=== PATIENT | male | born 1985 | race Caucasian/White ===

== ENCOUNTER 2017-12-20 17:09 | Emergency (ER) | payer MEDICAID, SELFPAY ==
[2017-12-20 17:10] VITALS: BP 137/84; PULSE 87; RESP 18; TEMP 36.2; O2SAT 99; BMI 229.2
--- NOTE | 2017-12-20 18:05 | EKG12_ITS ---
Test Reason : CHEST PAIN Blood Pressure : / mmHG Vent. Rate : 081 BPM Atrial Rate : 081 BPM P-R Int : 140 ms QRS Dur : 104 ms QT Int : 362 ms P-R-T Axes : 062 027 041 degrees QTc Int : 420 ms Normal sinus rhythm Normal ECG Confirmed by RODRIGO LOMELI, ALBINO ([id number]), proposal editor SKYLER MCGHEE ([id number]) on 12/23/2017 1:14:47 PM Referred By: LAURENCE/TI Confirmed By:ALBINO WALLACE MD
[2017-12-20] MEDS: 0.9% Normal Saline 1,000 ML 1000 ML IV (19:09)
[2017-12-20] MEDS: Ketorolac 30 MG/ML Syringe IV (19:09)
[2017-12-20] MEDS: Ondansetron 4 MG/2 ML Vial IV (19:09)
[2017-12-20 19:10] VITALS: BP 119/83; PULSE 101; RESP 17; O2SAT 100
[2017-12-20 19:24] LABS: Absolute Lymphocyte Count 1.38 X10^3/ul (0.83-4.51); Basophil# 0.01 X10^3/uL; Basophil% 0.1 % (0-1); Eosinophil# 0.09 X10^3/uL; Eosinophils% 0.7 % (0-5); Hemoglobin 14.8 g/dl (13.0-16.5); Lymphocyte # 1.38 X10^3/ul (4.0); Lymphocyte % 10.4 % (19-41); Mean Corp Hgb Conc 34.4 g/gl (32-36); Mean Corpuscular Hgb 30.3 pg (27.0-32.0); Mean Corpuscular Volume 88.1 fL (80-94); Mean Platelet Vol. 11.8 fl (6.2-12.0); Monocyte# 0.86 X10^3/uL; Monocyte% 6.5 % (0-10); Neutrophil # 10.95 X10^3/uL (2.7-7.7); Neutrophil % 82.1 % (47-70); Platelet Count 262 K/mm3 (150-450); RBC Distribution Width CV 13.1 % (11.6-14.6); RBC Distribution Width SD 42.3 fl (35.1-43.9); Red Blood Count 4.88 M/mm3 (4.6-6.2); White Blood Count 13.3 K/mm3 (4.4-11.0)
[2017-12-20 19:25] LABS: POSITIVE COUNT NO; POSITIVE DIFFERENTIAL NO; POSITIVE MORPHOLOGY NO
[2017-12-20 19:30] LABS: ALB/GLOB Ratio 1.5 RATIO (0.9-2.4); AST(SGOT) 138 U/L (15-37); Alanine Aminotransfer ALT/SGPT 68 U/L (16-61); Albumin, Serum 4.5 g/dL (3.2-5.0); Alkaline Phosphatase 91 U/L (45-117); Anion Gap 10 (5-15); BUN 12 mg/dL (7-18); BUN/Creat Ratio 16.1 RATIO (10-20); Calcium,Total 8.7 mg/dL (8.5-10.1); Chloride 110 mmol/L (98-107); Creatinine, Serum 0.74 mg/dL (0.70-1.30); EST Glomerular Filtration Rate 131 mL/min (>60); Est Glom Filt Rate - Afr Amer 158 mL/min (>60); Estimated Creatinine Clearance 160.21 ml/min; Glucose 96 mg/dL (74-106); Lipase 263 U/L (73-393); Potassium 3.9 mmol/L (3.5-5.1); Protein, Total 7.5 g/dL (6.4-8.2); Sodium Level 144 mmol/L (136-145)
--- NOTE | 2017-12-20 19:33 | US_ITS ---
STUDY: ABDOMINAL ULTRASOUND - RIGHT UPPER QUADRANT REASON FOR VISIT: Male, 32 years old. Epigastric pain TECHNIQUE: Ultrasound evaluation of the right upper quadrant was performed with real-time and static rodriguez-scale imaging. TECHNICAL QUALITY: Adequate. COMPARISON: None. FINDINGS: Liver: The liver measures 17.1 cm. There is normal echogenicity of the liver. The bile ducts are within normal limits. There is hepatic color flow. The direction of portal flow is hepatopetal. There is no demonstrated mass lesion. Gallbladder: Normal distended gallbladder. The gallbladder wall measures 2 mm. There is a negative sonographic Lawson's sign. There is no pericholecystic fluid. There is either an adherent non mobile gallstone of the gallbladder vs a gallbladder polyp. This measures around 7 to 6mm. Common Bile Duct (C.B.D.): The common bile duct measures 6 mm. Pancreas: Normal size of the head, body and tail of the pancreas. There is normal echogenicity of the pancreas. There is no demonstrated pancreatic mass or cyst. Right Kidney: Normal size of the right kidney. The right kidney measures 11.5x4.6x4.1 cm. Normal renal cortex. The right cortex measures 1.5 cm. There is no demonstrated renal mass or cyst. There is no right hydronephrosis. US/Gallbladder IMPRESSION: There is either an adherent non mobile gallstone of the gallbladder vs a gallbladder polyp. Electronically Signed: Matthew King MD at 21:07 EDT , Service support ,
[2017-12-20] MEDS: Morphine 4 MG/ML Syringe IV (19:55)
--- NOTE | 2017-12-20 21:39 | ED.VISSUMM ---
- ER Visit Summary Date of Service: 12/20/17 Chief Complaint: Abdominal pain History of Present Illness: The patient is a 32 M who presents with abdominal pain. It began about an hour and half prior to my evaluation. He had just eaten ice cream. He had also drank a couple of beers. He developed sudden onset severe aching epigastric pain which was nonradiating. He states that he felt dizzy as if he may pass out and had tingling in both of his arms while he was having severe pain and that this has since resolved. His pain is only moderate currently and he states significantly better than when his pain first began. He reports nausea without vomiting. No diarrhea. No history of prior similar symptoms. He denies fevers or recent illness. Physical Examination: Afebrile vitals are normal Moist mucous membranes Heart regular rate and rhythm Lungs are clear The abdomen is soft with no reproducible tenderness he is nondistended he does not have a Lawson sign Test Results: EKG shows normal sinus rhythm at a rate of 81. Laboratory studies notable for white blood cell count 13.3. Liver function tests notable for total bilirubin 1.2 ALT 68 AST 138. Right upper quadrant ultrasound shows a normal distended gallbladder with a wall of 2 mm no pericholecystic fluid there is either an adherent nonmobile gallstone versus polyp measuring 6-7 mm and common bile duct is 6 mm. Emergency Department Course and Treatment: Patient was initially treated with IV fluids and Toradol and Zofran with really no change in symptoms. He was given morphine with moderate improvement. He is resting comfortably on reevaluation. Given that he has a normal gallbladder wall no pericholecystic fluid no reproducible tenderness negative sonographic Lawson sign it is possible that his mild elevation of transaminases and bilirubin are related to the alcohol however I am still concerned about possible gallbladder pathology. We discussed hospitalization for symptom control, repeat labs and surgical consultation. The patient states that he feels better and would prefer to go home. Given his current vitals and exam I do not believe this is unreasonable as long as he has close outpatient follow-up and understands to return for any new or worsening symptoms. I spoke to Dr. Paulino general surgery sheet metal production worker who is able see the patient Friday morning and also asked that the patient be kept n.p.o. that morning. The patient was given clear instructions of specific signs and symptoms to monitor for and conditions under which to return to the emergency department and was discharged to follow-up closely with general surgery as an outpatient. Treatment Plan: [] Disposition: Discharge Impression: Abdominal pain Cholelithiasis This note was generated with [employer] dictation software. It may contain incorrect words, spelling, and punctuation that were not noted in review of the chart prior to signing ED Disposition - Plan for ED Patient: Chief Complaint: Abd Pain Referrals: Care Physician,No Primary [Primary Care Provider] -
--- NOTE | 2017-12-20 21:43 | ED.DEP ---
ED Disposition - Plan for ED Patient: Chief Complaint: Abd Pain Instructions: What are Gallstones? Referrals: Care Physician,No Primary [Primary Care Provider] - Alex Paulino MD [STAFF PHYSICIAN] - Additional Instructions: Call the office of Dr. Paulino for an appointment Friday. Do not eat or drink anything after 5 AM. If your pain worsens, you develop fever or vomiting, or any other new or worsening symptoms return to the emergency department.
[2017-12-20] MEDS: HYDROcodone Bitartrate/Apap 5/325 Tablet PO (21:59)
[2017-12-20] MEDS: Ondansetron ODT 4 MG Tablet PO (22:00)
[2017-12-20 22:01] VITALS: BP 115/61; PULSE 68; RESP 16
== END 2017-12-20 22:02 | disposition home or self-care (01) ==
PROVIDERS: Emergency Provider Emergency Medicine
DX: K80.20 Calculus of gallbladder without cholecystitis without obstruction (principal); R10.13 Epigastric pain
CPT/HCPCS: 76705; 80053; 83690; 85025; 93005; 96361; 96374; 96375; 99283; J7030; A4216; J2405

== ENCOUNTER 2018-01-01 11:45 | Day surgery (SDC) | payer MEDICAID, SELFPAY ==
[2018-01-01] VITALS (9 sets, daily range): BP systolic 114–147; BP diastolic 59–84; PULSE 46–77; RESP 14–18; TEMP 36.4–36.6; O2SAT 98–100; BMI 23.3
--- NOTE | 2018-01-01 | GALL_PTH ---
PATIENT: BEVERLY FRANKS LOC: [facility] [place] U#:[id number] AGE/SX: 32/M ROOM: RE01/01/[address]: Dr. Alex Paulino MD : 1985 BED: DIS: 01/01/2018 SPEC #: [id number] RECD: 01/02/18 13:17 STATUS: ALIA JAIME #: [id number] ORION: 01/01/18 00:[address]: Alex Paulino DEPT: SURGICAL PATHOLOGY RECD BY: Mario Parish ENTERED: 01/02/18 13:17 SP TYPE: NATE BARCENAS DR: No Primary Care Phys Tissues: Gallbladder, NOS Procedures: Surgery Specimen Level III HEADER OPERATION: Laparoscopic cholecystectomy PRE-OP DIAGNOSIS: Acute cholecystitis/cholelithiasis TISSUE SUBMITTED: Gallbladder and contents MICROSCOPIC DIAGNOSIS Gallbladder and contents: Mild chronic cholecystitis and cholelithiasis. SJ:matias 01/06/18 MICROSCOPIC DESCRIPTION Slides are reviewed. GROSS DESCRIPTION Received is one container labeled with the patient's name and designated gallbladder. The specimen consists of a gallbladder measuring 9 cm in length and 3.5 cm in diameter. The external surface is pink-hercules, smooth and glistening for the most part. Focally it is granular, hemorrhagic and contains cautery artifact. The gallbladder contains green-yellow mucoid bile and one irregular black stone measuring 0.7 x 0.6 x 0.5 cm. The mucosa is bile-stained and without any mass lesions. The gallbladder wall measures up to 0.2 cm in thickness. Cherry Grower sections from the gallbladder and the cystic duct are submitted in one cassette. / SJ:rg 01/02/18 TC:3 [facility]: [id number]
--- NOTE | 2018-01-01 11:55 | EKG12_ITS ---
Test Reason : PRE OP Blood Pressure : / mmHG Vent. Rate : 063 BPM Atrial Rate : 063 BPM P-R Int : 142 ms QRS Dur : 098 ms QT Int : 402 ms P-R-T Axes : 054 037 040 degrees QTc Int : 411 ms Normal sinus rhythm Normal ECG Confirmed by MIHAELA LOMELI, JACY ([id number]), supervising film or videotape editor SKYLER MCGHEE ([id number]) on 01/07/2018 3:20:20 PM Referred By: Alex Paulino Confirmed By:JACY CHAIREZ MD
[2018-01-01] MEDS: Bupivacaine Mpf 0.5% 30 ML VIAL (13:39)
[2018-01-01] MEDS: Cefazolin 2 GM in 0.9% Normal Saline 100 ML IV (13:54)
--- NOTE | 2018-01-01 14:02 | PCM.DC.GB ---
Discharge Diet: Light diet - advance as tolerated Discharge Activity: May Not Drive - for 2-3 days or while taking narcotic pain medications., - - Do not drive, work heavy equipment or sign legal documents for 24 hours. May shower in (days): 1 - with the bandage in place. Additional Activity Instructions:: Pain medication may cause nausea. You should typically eat light foods as you take your pain medications. Pain medication may also cause constipation. If this is a problem for you, please discuss with your doctor. Call your doctor if your incision/area has: Continuous Slow Oozing, Sudden Increased Bleeding, Increased Pain/ Swelling, Increased Redness, Foul Smelling Discharge Call your doctor if you observe: Fever of 101 or Higher Suture Line Care: Avoid Pulling/Pushing, Avoid Pinching/Bending Additional Dressing/Incision Instructions:: Leave operative bandaids on for 2 days. When you remove dressing, leave Steri-Strips on until your follow-up appointment, or until the Steri-Strips fall off on their own. Allergies/Adverse Reactions: Allergies No Known Allergies Allergy (Verified 12/26/17 13:34) Medications to take at Discharge oxycodone-acetaminophen 5 mg-325 mg tablet 1 tab PO ONCE PRN #30 tab 12/22/17 oxycodone-acetaminophen 5 mg-325 mg tablet 1 tab PO Q4H PRN 5 Days #30 tab 12/30/17 Hydrocodone/Acetaminophen [Vicodin 5-300 mg Tablet] 1 - 2 tablet PO Q4H PRN PRN 01/01/18 Primary Care Physician: Care Physician,No Primary [Primary Care Provider] - Please Follow Up With: Alex Paulino MD - Please call [phone] to schedule an appointment. When: 7 days after your surgery.
--- NOTE | 2018-01-01 14:03 | PCM.OPRPT ---
Problem List (1) Calculus of gallbladder with acute cholecystitis without obstruction Status: Acute Report of Operation Date of Procedure: 01/01/18 Pre-Operative Diagnosis: k80.00 acute calculus cholecystitis Post-Operative Diagnosis: Same Surgery/Procedure Performed:: [id number] laparoscopic cholecystectomy Type of Anesthesia:: General Anesthesiologist: Agus Conway Description of Procedure: . Patient was brought into the operating room. Placed in the supine position. Under excellent general endotracheal intubation the abdomen was sterilely prepped and draped in the usual fashion. Local was injected intraumbilically. Dissection was carried down to the fascia. Fascia was grasped with a Dupont. Varies needle was placed inside the abdomen. A 10/12 trocar was placed without difficulty. A subxiphoid #5 trocar was placed. Inferior to this another #5 trocar was placed. And laterally a #5 trocar was placed. All these under direct visualization without injury to underlying structures. Fundus of the gallbladder was grasped retracted in cephalad direction a significant amount of adhesions were taken off of the gallbladder with use of electrocautery I dissected out the cystic duct, the cystic artery, in the posterior aspect to the base of the liver. Once I identified the anatomy appropriately I place hemoclips proximally and distally on the cystic duct. The duct was ligated. I place hemoclips proximally distally on the artery. The artery was ligated. I deliver the gallbladder from the gallbladder bed with use of electrocautery. I had excellent hemostasis. I placed a specimen and specimen bag and delivered through the umbilical port. I reinflated the abdomen. I inspected the gallbladder. I had excellent hemostasis. I remove the trochars under direct visualization. The fascia the umbilical port with a figure 8 stitch of 0 Vicryl. Skin incisions were closed with a particular stitches of 4-0 Monocryl. Steri-Strips are applied. Sterile dressings were applied. Patient tolerated the procedure well. - Admit VTE Documentation VTE Present on Admission: No VTE Mechan Device Prophylaxis: SCD's VTE Pharm Prophylaxis ordered?: No Reason prophylaxis not ordered:: Treatment Not Indicated
== END 2018-01-01 17:15 | disposition home or self-care (01) ==
LOC: SDC 11:48 → AC 11:49
PROVIDERS: Visit Provider Surgery
PROC: (CPT 47562; principal; 2018-01-01 12:55)
DX: K80.00 Calculus of gallbladder with acute cholecystitis without obstruction (principal); C81.90 Hodgkin lymphoma, unspecified, unspecified site; Z79.891 Long term (current) use of opiate analgesic
CPT/HCPCS: 00790; 47562; 88304; 93005; J7120; J2405

== ENCOUNTER 2018-01-05 14:51 | Observation (INO) | payer MEDICAID, SELFPAY ==
[2018-01-05 14:51] VITALS: BP 124/78; PULSE 71; RESP 16; TEMP 36.6; O2SAT 98; BMI 23.8
--- NOTE | 2018-01-05 15:07 | CT_ITS ---
STUDY: CT ABDOMEN AND PELVIS WITH CONTRAST REASON FOR EXAM: Male, 32 years old. Pain. Recent cholecystectomy. RADIATION DOSAGE (If Supplied By Facility): CTDIvol = ( 12.59 ) mGy, DLP = ( 784.25 ) mGycm TECHNIQUE: Transaxial images were obtained from the dome of the diaphragm to the symphysis pubis with oral contrast. 100 ml of Isovue 300 contrast was administered. Sagittal and coronal images were reconstructed. Individualized dose optimization techniques were used for this CT. COMPARISON: None. FINDINGS: The visualized lung bases are unremarkable. The visualized portions of the heart are within normal limits. Normal liver. There are surgical changes in the gallbladder fossa consistent with a prior cholecystectomy. There is mild edema in the surgical bed. No fluid collection. Normal spleen. Normal pancreas. Normal bilateral adrenal glands. Normal right kidney. Normal left kidney. Normal visualized stomach. Normal small intestine. Normal colon. The appendix is visualized and appears normal. Normal abdominal aorta. Normal inferior vena cava. Normal retroperitoneum. Normal urinary bladder. There is mild free fluid in the pelvis. There is a small umbilical hernia containing fat. There is prior pelvic trauma with hardware fusing left pelvic fractures. Degenerative change of the hips. Sclerosis and fusion of the sacroiliac joints. CT/Abdomen/Pelvis WITH Contrast IMPRESSION: Recent cholecystectomy. No fluid collection in the surgical bed. Mild free fluid in the pelvis. Electronically Signed: Damien Lay MD at 18:14 EDT , Service support ,
--- NOTE | 2018-01-05 15:08 | ED.VISSUMM ---
- ER Visit Summary Date of Service: 01/05/18 Chief Complaint: Midepigastric abdominal pain History of Present Illness: The patient is a 32 M Zentz to the emergency department with midepigastric abdominal pain. The patient was in his normal state of health. He had a laparoscopic cholecystectomy by Dr. Paulino on . He states he has been doing well. He states that about 45 minutes prior to arrival, he had sudden onset, sharp, stabbing pain in his midepigastric area and was right upper quadrant. He states that this was having the same pain he had prior to his cholecystectomy. He states that he has been doing very well as an outpatient. His pain is been much better. He has not had fever chills. He has had no vomiting. He said no change in bowel habits. He denies any other systemic symptoms. Physical Examination: Vital signs reviewed General: Well-nourished, well-developed Head: Normocephalic, atraumatic Eyes: Pupils equal and reactive, extraocular muscles intact Neck, supple, no lymphadenopathy Heart: Regular rate and rhythm Respiratory: No distress, clear bilaterally Abdomen: Soft, tender in the midepigastric area, incisions are clean dry and intact, nondistended, no peritoneal signs Back: Nontender Extremities: Nontender, no edema, no cords Skin: Normal color no rash Neuro: Alert and oriented, no focal or lateralizing deficits Test Results: [] Emergency Department Course and Treatment: Include, the patient's symptoms are concerning for retained stone. IV was established. He was given analgesics with improvement of his pain, but then his pain returned. He does have elevations of LFTs, but his bilirubin is normal. His CT does not show any acute process but there is some dilation of his duct, but this can also be seen after surgery. Patient has required multiple doses of medication. I did discuss the patient Dr. Paulino he was going to admit the patient for observation for his pain. He will be evaluated in the emergency department by Dr. Paulino. Treatment Plan: [] Disposition: Ending Impression: Postoperative abdominal pain This note was generated with [employer] dictation software. It may contain incorrect words, spelling, and punctuation that were not noted in review of the chart prior to signing ED Disposition - Plan for ED Patient: Chief Complaint: Abd Pain Referrals: Care Physician,No Primary [Primary Care Provider] -
[2018-01-05] MEDS: 0.9% Normal Saline 1,000 ML 1000 ML IV (15:31)
[2018-01-05] MEDS: HYDROmorphone 1 MG/ML Syringe IV ×3 (15:31→20:54)
[2018-01-05 15:46] LABS: Absolute Lymphocyte Count 1.38 X10^3/ul (0.83-4.51); Absolute Neutrophil Count 6.6 X10^3/uL (2.0-7.7); Basophil# 0.02 X10^3/uL; Basophil% 0.2 % (0-1); Eosinophil# 0.07 X10^3/uL; Eosinophils% 0.8 % (0-5); Hematocrit 41.7 % (40-54); Hemoglobin 14.2 g/dl (13.0-16.5); Lymphocyte # 1.38 X10^3/ul (4.0); Mean Corp Hgb Conc 34.1 g/gl (32-36); Mean Corpuscular Hgb 30.1 pg (27.0-32.0); Mean Corpuscular Volume 88.3 fL (80-94); Mean Platelet Vol. 12.1 fl (6.2-12.0); Monocyte# 0.52 X10^3/uL; Neutrophil # 6.61 X10^3/uL (2.7-7.7); Neutrophil % 76.9 % (47-70); Platelet Count 234 K/mm3 (150-450); RBC Distribution Width CV 12.5 % (11.6-14.6); RBC Distribution Width SD 40.2 fl (35.1-43.9); Red Blood Count 4.72 M/mm3 (4.6-6.2); White Blood Count 8.6 K/mm3 (4.4-11.0)
[2018-01-05 15:47] LABS: ALB/GLOB Ratio 1.4 RATIO (0.9-2.4); AST(SGOT) 213 U/L (15-37); Alanine Aminotransfer ALT/SGPT 139 U/L (16-61); Albumin, Serum 4.3 g/dL (3.2-5.0); Alkaline Phosphatase 130 U/L (45-117); Anion Gap 6 (5-15); BUN 12 mg/dL (7-18); Calcium,Total 8.9 mg/dL (8.5-10.1); Chloride 106 mmol/L (98-107); EST Glomerular Filtration Rate 120 mL/min (>60); Est Glom Filt Rate - Afr Amer 145 mL/min (>60); Estimated Creatinine Clearance 148.19 ml/min; Globulin 3.1 g/dL (2.2-4.2); Glucose 96 mg/dL (74-106); Lipase 106 U/L (73-393); Potassium 3.9 mmol/L (3.5-5.1); Protein, Total 7.4 g/dL (6.4-8.2); Sodium Level 141 mmol/L (136-145)
[2018-01-05 15:55] LABS: POSITIVE COUNT NO; POSITIVE DIFFERENTIAL NO; POSITIVE MORPHOLOGY NO
[2018-01-05 17:22] VITALS: BP 125/70; PULSE 84; RESP 16; O2SAT 98
--- NOTE | 2018-01-05 19:07 | PCM.HP.STD ---
Problem List (1) Epigastric pain Status: Acute History of Present Illness Date of Admission: 01/05/18 The patient is a 32 M who presents to the emergency department with midepigastric abdominal pain. The patient was in his normal state of health. He had a laparoscopic cholecystectomy by myself on . He states he has been doing well. He states that about 45 minutes prior to arrival, he had sudden onset, sharp, stabbing pain in his midepigastric area and was right upper quadrant. He states that this was having the same pain he had prior to his cholecystectomy. He states that he has been doing very well as an outpatient. His pain is been much better. He has not had fever chills. He has had no vomiting. He said no change in bowel habits. He denies any other systemic symptoms. CT scan done does not show any obvious signs of leak. He does have some elevation in his liver enzymes particularly his alkaline phosphatase and ADL and AST. His total bilirubin is normal. Past Medical History Allergies No Known Allergies Allergy (Verified 12/26/17 13:34) Home Medications: Ambulatory Orders Medication Instructions Recorded oxycodone-acetaminophen 5 mg-325 1 tab PO ONCE PRN #30 tab 12/22/17 mg tablet Hydrocodone/Acetaminophen [Vicodin 1 - 2 tablet PO Q4H PRN PRN 01/01/18 5-300 mg Tablet] Surgical History: cholecystectomy Smoking Status: Never smoker - *Family History Maternal History Items: No pertinent history Review of Systems Constitutional: Denies: Chills, Fever, Weight Change Eyes: Denies: Blurred vision, Pain, Redness, Vision Change HEENT: Denies: Dysphasia, Ear Pain, Eye Pain, Head Aches, Hearing Changes, Sore Throat Cardiovascular: Denies: Chest Pain, Chest Pressure, Chest Tightness, Palpitations Respiratory: Denies: Cough, Hemoptysis, Shortness of breath at rest, Shortness of breath upon exertion, Wheezing Gastrointestinal: Reports: Abdominal Pain, Nausea. Denies: Constipation, Diarrhea, Hematemesis, Melena, Vomiting Genitourinary: Denies: Dysuria, Frequency, Hematuria, Urgency Musculoskeletal: Denies: Joint Pain Skin: Denies: Lesions, Rash, Wounds Neurological: Denies: Change in Speech, Confusion, Numbness, Tingling, Seizures Psychiatric: Denies: Anxiety, Depression Endocrine: Denies: Heat/ Cold Intolerance, Polydipsia, Polyuria Hematologic/ Lymphatic: Denies: Adenopathy, Easy Bruising VTE Information - Inpt Only VTE Present on Admission: No VTE Mechan Device Prophylaxis: None VTE Pharm Prophylaxis ordered?: No Reason prophylaxis not ordered:: Treatment Not Indicated Patient Problems: Active and Suspected Problems (Last Reviewed 12/26/17 @ 09:32 by Alex Paulino MD) Epigastric pain (Acute) - Physical Exam General: Alert, Oriented x3 HEENT: Atraumatic, PERRLA, EOMI, Normocephalic Oral: Moist Mucosa Neck: Supple, No JVD Lungs: Clear to auscultation Cardiovascular: Regular rate, Regular Rhythm, No murmurs Abdomen: Bowel Sounds Present, Soft, Non-Distended, Tender - Most of his tenderness is surrounded by his incisional sites. He has no rebound guarding or peritoneal signs identified. All of his incisions look normal. Extremities: No clubbing, No cyanosis, No edema Skin: No rashes, No breakdown Musculoskeletal: No Tenderness to Palpation of Joints or Extremities Lymphatic: No Cervical, Supraclavicular, or Inguinal Adenopathy Neurological: Cranial nerves II-XII grossly intact Psych/Mental Status: Normal Affect, Appropriate Vital Signs Temp Pulse Resp BP Pulse Ox 98 F 84 16 125/70 H 98 01/05/18 14:51 01/05/18 17:22 01/05/18 17:22 01/05/18 17:22 01/05/18 17:22 Oxygen Delivery Method Room Air Weight: 175 lb 4.28 oz Body Mass Index (BMI) 23.8 Laboratory Tests Past 24 Hrs 01/05/18 01/05/18 15:20 15:20 WBC 8.6 RBC 4.72 Hgb 14.2 Hct 41.7 MCV 88.3 MCH 30.1 MCHC 34.1 RDW 12.5 RDW Differential 40.2 Plt Count 234 MPV 12.1 H Immature Gran % (Auto) 0.100 Neut % (Auto) 76.9 H Lymph % (Auto) 16.0 L [place] % (Auto) 6.0 Eos % (Auto) 0.8 Baso % (Auto) 0.2 Absolute Neuts (auto) 6.6 Absolute Lymphs (auto) 1.38 Total Counted Not Reportable Sodium 141 Potassium 3.9 Chloride 106 Carbon Dioxide 29.0 Anion Gap 6 BUN 12 Creatinine 0.80 Estim Creat Clear Calc 148.19 Est GFR (MDRD) Af Amer 145 Est GFR (MDRD) Non-Af 120 BUN/Creatinine Ratio 15.0 Glucose 96 Calcium 8.9 Total Bilirubin 0.80 AST 213 H ALT 139 H Alkaline Phosphatase 130 H Total Protein 7.4 Albumin 4.3 Globulin 3.1 Albumin/Globulin Ratio 1.4 Lipase 106 Assessment/Plan Active and Suspected Problems (Last Reviewed 12/26/17 @ 09:32 by Alex Paulino MD) Epigastric pain (Acute) I am going to admit the patient for hydration will keep him on clear liquids. I am going to obtain an MRCP tomorrow morning to evaluate the common bile duct and pancreas area. If this is negative then he will need to have an esophagogastroduodenoscopy to see if he has any ulcers.
--- NOTE | 2018-01-05 19:15 | MRI_ITS ---
STUDY: MR CHOLANGIOPANCREATOGRAPHY (MRCP) REASON FOR EXAM: Male, 32 years old. Right upper quadrant pain status post cholecystectomy 01/01/2018. TECHNIQUE: MRCP with multisequence multiplanar MRI of the abdomen, without contrast. COMPARISON: CT abdomen and pelvis 12/28/2017 FINDINGS: Minimal inflammatory edema in the cholecystectomy bed without evidence of biloma, abscess or hematoma and consistent with an appropriate postsurgical appearance. Mild intrahepatic biliary ductal ectasia. Mild ectasia of the common bile duct proximally 7 mm, tapering distally into the pancreatic head to a normal caliber. There is a small calculus within the distal common bile duct. The calculus measures approximately 4.3 x 3.0 mm. Distal to the calculus, the duct tapers normally into the slender aperture of the sphincter, joining the ectatic duct at the major papilla (conventional pancreatic ductal anatomy) without pancreatic ductal dilatation. Solid organs of the abdomen and evaluated portions of the bowel are otherwise unremarkable. MRI/MRCP Abdomen without Contrast IMPRESSION: Choledocholithiasis. Associated with minimal biliary ductal ectasia. Electronically Signed: Navneet Doherty, at 10:04 EDT Tel , Service support ,
[2018-01-05 19:30] VITALS: BP 132/71; PULSE 68; RESP 16; O2SAT 99
[2018-01-05 20:17] VITALS: BMI 23.6
[2018-01-05 20:26] VITALS: BP 120/74; PULSE 63; RESP 16; TEMP 36.5; O2SAT 99
[2018-01-05 20:27] VITALS: BMI 23.6
[2018-01-05] MEDS: Lactated Ringers 1,000 ML 70 ML IV (20:36)
[2018-01-05] MEDS: oxyCODONE HCl Cr 10 MG Tablet PO (22:29)
[2018-01-06] VITALS (11 sets, daily range): BP systolic 107–132; BP diastolic 59–81; PULSE 53–85; RESP 14–16; TEMP 36.3–37.1; O2SAT 96–100; BMI 23.6
--- NOTE | 2018-01-06 06:43 | PCM.PN.SRG ---
Patient Problems: Active and Suspected Problems (Last Reviewed 12/26/17 @ 09:32 by Alex Paulino MD) Epigastric pain (Acute) Subjective: Patient evaluated resting comfortably in bed. He denies epigastric discomfort over night. He denies nausea, vomiting. He notes positive flatus. He feels slightly distended. - Physical Exam General: Alert, Oriented x3, Cooperative Abdomen: Bowel Sounds Present, Soft, Non Tender, Distended - slightly Vital Signs Temp Pulse Resp BP Pulse Ox 97.7 F L 53 L 16 107/64 98 01/06/18 02:30 01/06/18 02:30 01/06/18 02:30 01/06/18 02:30 01/06/18 02:30 Oxygen Delivery Method Room Air Weight: 174 lb 2.643 oz Body Mass Index (BMI) 23.6 Intake and Output for Last 24 Hours 01/04/18 01/05/18 01/06/18 23:59 23:59 23:59 Intake Total 567 / 567 455 / 455 Balance 567 / 567 455 / 455 Medical Necessity - Tobacco Use Smoking Status: Never smoker Assessment/Plan Active and Suspected Problems (Last Reviewed 12/26/17 @ 09:32 by Alex Paulino MD) Epigastric pain (Acute) I am following this patient in conjunction with Dr. Paulino Impression: Epigastric discomfort Obtain MRCP today If MRCP is negative, Dr. Paulino will proceed with an upper scope possible tomorrow We will continue to monitor this patient Code Visit Inpatient E&M: 19955 Subs Hosp L1 - Please check this charge. Pt. ashlee collazo on 01/[address] Paulino. ? post-op charge
--- NOTE | 2018-01-06 06:48 | PN.SURG_ITS ---
Patient Problems: Active and Suspected Problems (Last Reviewed 12/26/17 @ 09:32 by Alex Paulino MD) Epigastric pain (Acute) Subjective: Patient evaluated resting comfortably in bed. He denies epigastric discomfort over night. He denies nausea, vomiting. He notes positive flatus. He feels slightly distended. - Physical Exam General: Alert, Oriented x3, Cooperative Abdomen: Bowel Sounds Present, Soft, Non Tender, Distended - slightly Vital Signs Temp Pulse Resp BP Pulse Ox 97.7 F L 53 L 16 107/64 98 01/06/18 02:30 01/06/18 02:30 01/06/18 02:30 01/06/18 02:30 01/06/18 02:30 Oxygen Delivery Method Room Air Weight: 174 lb 2.643 oz Body Mass Index (BMI) 23.6 Intake and Output for Last 24 Hours 01/04/18 01/05/18 01/06/18 23:59 23:59 23:59 Intake Total 567 / 567 455 / 455 Balance 567 / 567 455 / 455 Medical Necessity - Tobacco Use Smoking Status: Never smoker Assessment/Plan Active and Suspected Problems (Last Reviewed 12/26/17 @ 09:32 by Alex Paulino MD) Epigastric pain (Acute) I am following this patient in conjunction with Dr. Paulino Impression: Epigastric discomfort Obtain MRCP today If MRCP is negative, Dr. Paulino will proceed with an upper scope possible tomorrow We will continue to monitor this patient Code Visit Inpatient E&M: 54864 Subs Hosp L1 - Please check this charge. Pt. ashlee collazo on with Dr. Paulino. ? post-op charge
[2018-01-06] MEDS: HYDROmorphone 1 MG/ML Syringe IV ×3 (06:54→18:52)
[2018-01-06 09:39] LABS: Absolute Lymphocyte Count 1.28 X10^3/ul (0.83-4.51); Absolute Neutrophil Count 3.6 X10^3/uL (2.0-7.7); Basophil# 0.02 X10^3/uL; Basophil% 0.4 % (0-1); Eosinophil# 0.07 X10^3/uL; Eosinophils% 1.3 % (0-5); Hematocrit 41.5 % (40-54); Hemoglobin 13.7 g/dl (13.0-16.5); Lymphocyte # 1.28 X10^3/ul (4.0); Lymphocyte % 23.9 % (19-41); Mean Corpuscular Hgb 29.7 pg (27.0-32.0); Mean Platelet Vol. 12.2 fl (6.2-12.0); Monocyte% 7.5 % (0-10); Neutrophil # 3.59 X10^3/uL (2.7-7.7); Neutrophil % 66.9 % (47-70); Platelet Count 214 K/mm3 (150-450); RBC Distribution Width CV 12.8 % (11.6-14.6); RBC Distribution Width SD 41.6 fl (35.1-43.9); Red Blood Count 4.61 M/mm3 (4.6-6.2); White Blood Count 5.4 K/mm3 (4.4-11.0)
[2018-01-06 09:41] LABS: POSITIVE COUNT NO; POSITIVE DIFFERENTIAL NO; POSITIVE MORPHOLOGY NO
[2018-01-06 10:00] LABS: ALB/GLOB Ratio 1.3 RATIO (0.9-2.4); AST(SGOT) 194 U/L (15-37); Alanine Aminotransfer ALT/SGPT 261 U/L (16-61); Albumin, Serum 3.8 g/dL (3.2-5.0); Alkaline Phosphatase 129 U/L (45-117); Anion Gap 3 (5-15); BUN 7 mg/dL (7-18); BUN/Creat Ratio 9.5 RATIO (10-20); Calcium,Total 8.4 mg/dL (8.5-10.1); Chloride 109 mmol/L (98-107); Creatinine, Serum 0.73 mg/dL (0.70-1.30); EST Glomerular Filtration Rate 133 mL/min (>60); Est Glom Filt Rate - Afr Amer 161 mL/min (>60); Glucose 88 mg/dL (74-106); Potassium 4.1 mmol/L (3.5-5.1); Protein, Total 6.8 g/dL (6.4-8.2); Sodium Level 142 mmol/L (136-145)
[2018-01-06] MEDS: 0.9% NaCl Peripheral Flush Adult/Peds IV (10:45)
[2018-01-06] MEDS: oxyCODONE HCl Cr 10 MG Tablet PO ×2 (10:48→22:13)
--- NOTE | 2018-01-06 11:31 | PCM.PN.SRG ---
Patient Problems: Active and Suspected Problems (Last Reviewed 12/26/17 @ 09:32 by Alex Paulino MD) Epigastric pain (Acute) Subjective: Patient is complaining of epigastric pain. No nausea or vomiting. No fevers or chills. - Physical Exam General: Alert, Oriented x3, Cooperative Neck: No JVD Lungs: Clear to auscultation, Normal air movement Cardiovascular: Regular rate, Regular Rhythm Abdomen: Soft, Non-Distended, Tender - Tender in the epigastric region. No guarding or rebound. Neurological: Cranial nerves II-XII grossly intact Psych/Mental Status: Normal Affect Vital Signs Temp Pulse Resp BP Pulse Ox 98.7 F 62 16 119/76 98 01/06/18 10:43 01/06/18 10:43 01/06/18 10:43 01/06/18 10:43 01/06/18 10:43 Oxygen Delivery Method Room Air Weight: 174 lb 2.643 oz Body Mass Index (BMI) 23.6 Intake and Output for Last 24 Hours 01/04/18 01/05/18 01/06/18 23:59 23:59 23:59 Intake Total 567 / 567 455 / 455 Balance 567 / 567 455 / 455 Laboratory Tests Past 24 Hrs 01/06/18 01/06/18 09:25 09:25 WBC 5.4 RBC 4.61 Hgb 13.7 Hct 41.5 MCV 90.0 MCH 29.7 MCHC 33.0 RDW 12.8 RDW Differential 41.6 Plt Count 214 MPV 12.2 H Immature Gran % (Auto) 0.000 Neut % (Auto) 66.9 Lymph % (Auto) 23.9 [place] % (Auto) 7.5 Eos % (Auto) 1.3 Baso % (Auto) 0.4 Absolute Neuts (auto) 3.6 Absolute Lymphs (auto) 1.28 Total Counted Not Reportable Sodium 142 Potassium 4.1 Chloride 109 H Carbon Dioxide 30.0 Anion Gap 3 L BUN 7 Creatinine 0.73 Estim Creat Clear Calc 162.40 Est GFR (MDRD) Af Amer 161 Est GFR (MDRD) Non-Af 133 BUN/Creatinine Ratio 9.5 L Glucose 88 Calcium 8.4 L Total Bilirubin 1.00 AST 194 H ALT 261 H Alkaline Phosphatase 129 H Total Protein 6.8 Albumin 3.8 Globulin 3.0 Albumin/Globulin Ratio 1.3 Clinical Impression(s) from Imaging Studies Abdomen/Pelvis CT 01/05/18 15:07 IMPRESSION: Recent cholecystectomy. No fluid collection in the surgical bed. Mild free fluid in the pelvis. Electronically Signed: Damien Lay MD at 18:14 EDT , Service support , MRCP 01/05/18 19:15 IMPRESSION: Choledocholithiasis. Associated with minimal biliary ductal ectasia. Electronically Signed: Navneet Doherty, at 10:04 EDT Tel , Service support , Medical Necessity - Tobacco Use Smoking Status: Never smoker Assessment/Plan Active and Suspected Problems (Last Reviewed 12/26/17 @ 09:32 by Alex Paulino MD) Epigastric pain (Acute) 32-year-old male with choledocholithiasis 1. Patient had recent laparoscopic cholecystectomy last week. He represented with epigastric pain. Lipase was normal. CT revealed some mild fluid in the pelvis. MRCP did reveal choledocholithiasis with a 4 mm stone in his common bile duct. LFTs were mildly elevated. 2. I explained ERCP to the patient in detail. The risks including but not limited to bleeding, infection, perforation of the bowel or bile duct, pancreatitis. I explained the procedure in detail as well as the risk of having to place a stent if I was unable to remove the stone. The patient understands all questions were answered. We will proceed with ERCP this afternoon at 330. aCl Garibay MD Pager: [facility] [address] [place] [address], [address] [place] [address] Office:
--- NOTE | 2018-01-06 11:34 | PN.SURG_ITS ---
Patient Problems: Active and Suspected Problems (Last Reviewed 12/26/17 @ 09:32 by Alex Paulino MD) Epigastric pain (Acute) Subjective: Patient is complaining of epigastric pain. No nausea or vomiting. No fevers or chills. - Physical Exam General: Alert, Oriented x3, Cooperative Neck: No JVD Lungs: Clear to auscultation, Normal air movement Cardiovascular: Regular rate, Regular Rhythm Abdomen: Soft, Non-Distended, Tender - Tender in the epigastric region. No guarding or rebound. Neurological: Cranial nerves II-XII grossly intact Psych/Mental Status: Normal Affect Vital Signs Temp Pulse Resp BP Pulse Ox 98.7 F 62 16 119/76 98 01/06/18 10:43 01/06/18 10:43 01/06/18 10:43 01/06/18 10:43 01/06/18 10:43 Oxygen Delivery Method Room Air Weight: 174 lb 2.643 oz Body Mass Index (BMI) 23.6 Intake and Output for Last 24 Hours 01/04/18 01/05/18 01/06/18 23:59 23:59 23:59 Intake Total 567 / 567 455 / 455 Balance 567 / 567 455 / 455 Laboratory Tests Past 24 Hrs 01/06/18 01/06/18 09:25 09:25 WBC 5.4 RBC 4.61 Hgb 13.7 Hct 41.5 MCV 90.0 MCH 29.7 MCHC 33.0 RDW 12.8 RDW Differential 41.6 Plt Count 214 MPV 12.2 H Immature Gran % (Auto) 0.000 Neut % (Auto) 66.9 Lymph % (Auto) 23.9 [place] % (Auto) 7.5 Eos % (Auto) 1.3 Baso % (Auto) 0.4 Absolute Neuts (auto) 3.6 Absolute Lymphs (auto) 1.28 Total Counted Not Reportable Sodium 142 Potassium 4.1 Chloride 109 H Carbon Dioxide 30.0 Anion Gap 3 L BUN 7 Creatinine 0.73 Estim Creat Clear Calc 162.40 Est GFR (MDRD) Af Amer 161 Est GFR (MDRD) Non-Af 133 BUN/Creatinine Ratio 9.5 L Glucose 88 Calcium 8.4 L Total Bilirubin 1.00 AST 194 H ALT 261 H Alkaline Phosphatase 129 H Total Protein 6.8 Albumin 3.8 Globulin 3.0 Albumin/Globulin Ratio 1.3 Clinical Impression(s) from Imaging Studies Abdomen/Pelvis CT 01/05/18 15:07 IMPRESSION: Recent cholecystectomy. No fluid collection in the surgical bed. Mild free fluid in the pelvis. Electronically Signed: Damien Lay MD at 18:14 EDT , Service support , MRCP 01/05/18 19:15 IMPRESSION: Choledocholithiasis. Associated with minimal biliary ductal ectasia. Electronically Signed: Navneet Doherty, at 10:04 EDT Tel , Service support , Medical Necessity - Tobacco Use Smoking Status: Never smoker Assessment/Plan Active and Suspected Problems (Last Reviewed 12/26/17 @ 09:32 by Alex Paulino MD) Epigastric pain (Acute) 32-year-old male with choledocholithiasis 1. Patient had recent laparoscopic cholecystectomy last week. He represented with epigastric pain. Lipase was normal. CT revealed some mild fluid in the pelvis. MRCP did reveal choledocholithiasis with a 4 mm stone in his common bile duct. LFTs were mildly elevated. 2. I explained ERCP to the patient in detail. The risks including but not limited to bleeding, infection, perforation of the bowel or bile duct, pancreatitis. I explained the procedure in detail as well as the risk of having to place a stent if I was unable to remove the stone. The patient understands all questions were answered. We will proceed with ERCP this afternoon at 330. Cal Garibay MD Pager: [facility] [address] [place] [address], [address] [place] [address] Office:
[2018-01-06] MEDS: Lactated Ringers 1,000 ML 70 ML IV (13:00)
--- NOTE | 2018-01-06 16:45 | RAD_ITS ---
CLINICAL HISTORY: Male, 32 years old. Right upper quadrant pain postcholecystectomy.. PROCEDURE: ERCP. FLUOROSCOPY TIME (if supplied): (4:20) minutes/seconds TECHNIQUE: Fluoroscopic assistance was provided to Dr. Garibay. 4 fluoroscopic spot films are submitted. COMPARISON: MRCP January 06, 2018; CT abdomen and pelvis January 05, 2018. FINDINGS: With an endoscope in the second portion of the duodenum, the ampulla of Vater was cannulated for retrograde contrast injection and passage of a guidewire. 1-2 filling defects representing gas bubbles or stones are noted within the common bile duct. There is mild extrahepatic bile duct ectasia. A catheter is passed over the guidewire on the final image. There is no demonstrated extravasation. RAD/ERCP Biliary Only IMPRESSION: Choledocholithiasis with mild extrahepatic bile duct ectasia. Correlation with procedure note suggested. Electronically Signed: Jorge Alberto Dietrich MD at 19:57 EDT , Service support ,
[2018-01-06 17:13] LABS: Lipase 76 U/L (73-393)
--- NOTE | 2018-01-06 18:39 | PCM.OPRPT ---
Problem List (1) Choledocholithiasis Status: Acute Report of Operation Date of Procedure: 01/06/18 Pre-Operative Diagnosis: Choledocholithiasis Post-Operative Diagnosis: Choledocholithiasis Surgery/Procedure Performed:: ERCP with sphincterotomy and stone removal Description of Procedure: After describing the risks of the procedure as well as the procedure in detail informed consent was obtained. Patient was brought to the operating room and general anesthesia was induced. The patient was then placed in a semi-prone position. Next, the side-viewing endoscope was placed into the mouth and down into the stomach and advanced into the duodenum. The ampulla was located. A sphinctertome was used to cannulate the common bile duct and location was confirmed on fluoroscopy. There did appear to be a common bile duct stone. The guidewire was placed in the common bile duct and using sphincterotome and electrocautery a sphincterotomy was performed. Hemostasis was good. Next the sphincterotome was removed leaving the guidewire in the common bile duct. A balloon was then introduced over the guidewire and the common bile duct and several sweeps were performed. I was unable to remove the stone with the balloon. The balloon was removed and a trapezoid basket was placed into the common bile duct. I was able to remove the stone with a trapezoid basket. Next the balloon was replaced into the common bile duct and several sweeps were performed. Once the duct was adequately clear of stones. The balloon was removed as well as the guidewire. The side-viewing scope was then withdrawn back into the stomach and the stomach was suctioned. Next, the scope was removed. The patient was taken to PACU in stable condition. The patient tolerated the procedure well.
[2018-01-06] MEDS: HYDROmorphone 1 MG/ML Syringe 2 MG IV (20:15)
[2018-01-06] MEDS: Ondansetron 4 MG/2 ML Vial IV (20:15)
[2018-01-07 03:34] VITALS: BP 102/70; PULSE 56; RESP 16; TEMP 36.4; O2SAT 95
--- NOTE | 2018-01-07 08:49 | PCM.DC.SUM ---
Discharge Date and Diagnosis - Problem List Patient Problems: Active and Suspected Problems (Last Reviewed 12/26/17 @ 09:32 by Alex Paulino MD) Epigastric pain (Acute) Choledocholithiasis (Acute) Date of Admission: 01/05/18 Date of Discharge: 01/07/18 - Primary Discharge Diagnosis Active and Suspected Problems (Last Reviewed 12/26/17 @ 09:32 by Alex Paulino MD) Epigastric pain (Acute) Choledocholithiasis (Acute) Hospital Course and Treatment Imaging Results: Clinical Impression(s) from Imaging Studies Abdomen/Pelvis CT 01/05/18 15:07 IMPRESSION: Recent cholecystectomy. No fluid collection in the surgical bed. Mild free fluid in the pelvis. Electronically Signed: Damien Lay MD at 18:14 EDT , Service support , MRCP 01/05/18 19:15 IMPRESSION: Choledocholithiasis. Associated with minimal biliary ductal ectasia. Electronically Signed: Navneet Doherty at 10:04 EDT Tel , Service support , ERCP X-Ray 01/06/18 16:45 IMPRESSION: Choledocholithiasis with mild extrahepatic bile duct ectasia. Correlation with procedure note suggested. Electronically Signed: Jorge Alberto Dietrich MD at 19:57 EDT , Service support , Operations: ERCP Procedures: None Summary of Care Provided: The patient is a 32 year old M who developed epigastric pain after laparoscopic cholecystectomy. He was reimaged and MRCP showed a common bile duct stone. He was taken for ERCP and the stone was removed. The following day his pain was improved and he is tolerating a diet. He was discharged home in stable condition and asked to follow-up with Dr. Paulino as scheduled. Discharge Diet: Light diet - advance as tolerated Discharge Activity: Return to Normal Activity May shower in (days): 1 - with the bandage in place. Additional Activity Instructions:: Pain medication may cause nausea. You should typically eat light foods as you take your pain medications. Pain medication may also cause constipation. If this is a problem for you, please discuss with your doctor. Call your doctor if your incision/area has: Continuous Slow Oozing, Sudden Increased Bleeding, Increased Pain/ Swelling, Increased Redness, Foul Smelling Discharge, Fever of 101 or Higher Call your doctor if you observe: Fever of 101 or Higher Suture Line Care: Avoid Pulling/Pushing, Avoid Pinching/Bending Home Medications: Medications to take at Discharge Oxycodone HCl/Acetaminophen [Percocet 5/325] 1 tablet PO Q4H PRN PRN 7 Days #10 tablet 01/07/18 Following Prescrptions Were Given to Patient: Oxycodone HCl/Acetaminophen [Percocet 5/325] 1 tablet PO Q4H PRN PRN 7 Days #10 tablet PRN Reason: Pain Primary Care Physician: Care Physician,No Primary [Primary Care Provider] - Please Follow Up With: Alex Paulino MD When: as scheduled for follow up Medical Necessity - Tobacco Use Smoking Status: Never smoker Meaningful Use Info Meaningful Use Diagnoses (Choose all that apply): None applicable
[2018-01-07] MEDS: oxyCODONE HCl Cr 10 MG Tablet PO (09:53)
[2018-01-07 09:57] VITALS: BP 119/68; PULSE 74; RESP 18; TEMP 36.6; O2SAT 98
== END 2018-01-07 10:20 | disposition home or self-care (01) ==
LOC: ED 18:26 → MS3 19:40
PROVIDERS: Physician Assistant; Surgery; Admitting Provider Surgery; Emergency Provider Emergency Medicine; Visit Provider Surgery
PROC: (CPT 43260; principal; 2018-01-06 15:00)
DX: K80.50 Calculus of bile duct without cholangitis or cholecystitis without obstruction (principal); R10.13 Epigastric pain; R94.5 Abnormal results of liver function studies; K21.9 Gastro-esophageal reflux disease without esophagitis; Z79.891 Long term (current) use of opiate analgesic
CPT/HCPCS: 43262; 36415; 74177; 74181; 74328; 76000; 80053; 83690; 85025; 93005; 96374; 96375; 96376; 99218; 99285; J7030; J7120; Q9967; A4216; G0378; J2405; J3490

== ENCOUNTER 2018-08-21 11:05 | Emergency (ER) | payer MEDICAID, SELFPAY ==
[2018-08-21 11:06] VITALS: BP 152/82; PULSE 85; RESP 18; TEMP 36.2; O2SAT 100; BMI 22.4
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
== END 2018-08-21 11:36 | disposition home or self-care (01) ==
PROVIDERS: Emergency Provider Emergency Medicine
DX: M54.6 Pain in thoracic spine (principal); S39.012A Strain of muscle, fascia and tendon of lower back, initial encounter; X50.1XXA Overexertion from prolonged static or awkward postures, initial encounter; Y93.89 Activity, other specified; Y92.89 Other specified places as the place of occurrence of the external cause; Y99.8 Other external cause status
CPT/HCPCS: 99282

== ENCOUNTER 2019-01-17 10:59 | Emergency (ER) | payer SELFPAY ==
[2019-01-17 11:00] VITALS: BP 129/83; PULSE 84; RESP 16; TEMP 36.6; O2SAT 99; BMI 23.0
--- NOTE | 2019-01-17 11:15 | CT_ITS ---
STUDY: CT LUMBAR SPINE WITHOUT CONTRAST REASON FOR EXAM: Male, 33 years old. Pain RADIATION DOSAGE (If Supplied By Facility): CTDIvol = ( 10.11 ) mGy, DLP = ( 339.39 ) mGycm TECHNIQUE: The patient was scanned in a multi detector CT scanner. High resolution transaxial imaging was performed. Images were obtained from L1 to sacrum. Sagittal and coronal images were reconstructed. Individualized dose optimization techniques were used for this CT. COMPARISON: None FINDINGS: Normal lumbar lordosis. There is no substantial scoliosis. Previous right pelvic ORIF near the SI joint. Normal vertebrae of the lumbar spine. L1-2: Normal endplates. Normal disc height and morphology. Normal bilateral facet joints. Normal central canal and bilateral lateral recesses. Normal bilateral intervertebral neural foramina. L2-3: Normal endplates. Normal disc height and morphology. Normal bilateral facet joints. Normal central canal and bilateral lateral recesses. Normal bilateral intervertebral neural foramina. L3-4: Normal endplates. Normal disc height and morphology. Normal bilateral facet joints. Normal central canal and bilateral lateral recesses. Normal bilateral intervertebral neural foramina. L4-5: Normal endplates. Normal disc height and morphology. Normal bilateral facet joints. Normal central canal and bilateral lateral recesses. Normal bilateral intervertebral neural foramina. L5-S1: Normal endplates. Normal disc height and morphology. Normal bilateral facet joints. Normal central canal and bilateral lateral recesses. Normal bilateral intervertebral neural foramina. Normal visualized paraspinous soft tissue structures.
[2019-01-17] MEDS: Ketorolac 30 MG/ML Syringe IV (11:31)
[2019-01-17 11:37] LABS: Absolute Lymphocyte Count 2.12 X10^3/ul (0.83-4.51); Absolute Neutrophil Count 4.4 X10^3/uL (2.0-7.7); Basophil# 0.03 X10^3/uL; Basophil% 0.4 % (0-1); Eosinophils% 3.8 % (0-5); Hematocrit 44.3 % (40-54); Hemoglobin 14.9 g/dl (13.0-16.5); Lymphocyte # 2.12 X10^3/ul (4.0); Lymphocyte % 26.9 % (19-41); Mean Corp Hgb Conc 33.6 g/gl (32-36); Mean Corpuscular Hgb 29.7 pg (27.0-32.0); Mean Corpuscular Volume 88.2 fL (80-94); Mean Platelet Vol. 11.3 fl (6.2-12.0); Monocyte# 0.99 X10^3/uL; Monocyte% 12.5 % (0-10); Neutrophil # 4.43 X10^3/uL (2.7-7.7); Neutrophil % 56.1 % (47-70); Platelet Count 247 K/mm3 (150-450); RBC Distribution Width CV 12.8 % (11.6-14.6); RBC Distribution Width SD 41.3 fl (35.1-43.9); Red Blood Count 5.02 M/mm3 (4.6-6.2); White Blood Count 7.9 K/mm3 (4.4-11.0)
[2019-01-17 11:38] LABS: POSITIVE COUNT NO; POSITIVE DIFFERENTIAL NO; POSITIVE MORPHOLOGY NO
[2019-01-17] MEDS: Gabapentin 300 MG Capsule PO (11:42)
[2019-01-17 11:48] LABS: Anion Gap 8 (5-15); BUN 11 mg/dL (7-18); BUN/Creat Ratio 12.4 RATIO (10-20); Calcium,Total 9.1 mg/dL (8.5-10.1); Chloride 105 mmol/L (98-107); Creatinine, Serum 0.89 mg/dL (0.70-1.30); EST Glomerular Filtration Rate 106 mL/min (>60); Est Glom Filt Rate - Afr Amer 128 mL/min (>60); Estimated Creatinine Clearance 131.17 ml/min; Glucose 88 mg/dL (74-106); Potassium 4.3 mmol/L (3.5-5.1); Sodium Level 143 mmol/L (136-145)
--- NOTE | 2019-01-17 12:53 | CT_ITS ---
STUDY: CT LUMBAR SPINE WITHOUT CONTRAST REASON FOR EXAM: Male, 33 years old. Pain RADIATION DOSAGE (If Supplied By Facility): CTDIvol = ( 10.11 ) mGy, DLP = ( 339.39 ) mGycm TECHNIQUE: The patient was scanned in a multi detector CT scanner. High resolution transaxial imaging was performed. Images were obtained from L1 to sacrum. Sagittal and coronal images were reconstructed. Individualized dose optimization techniques were used for this CT. COMPARISON: None FINDINGS: Normal lumbar lordosis. There is no substantial scoliosis. Previous right pelvic ORIF near the SI joint. Normal vertebrae of the lumbar spine. L1-2: Normal endplates. Normal disc height and morphology. Normal bilateral facet joints. Normal central canal and bilateral lateral recesses. Normal bilateral intervertebral neural foramina. L2-3: Normal endplates. Normal disc height and morphology. Normal bilateral facet joints. Normal central canal and bilateral lateral recesses. Normal bilateral intervertebral neural foramina. L3-4: Normal endplates. Normal disc height and morphology. Normal bilateral facet joints. Normal central canal and bilateral lateral recesses. Normal bilateral intervertebral neural foramina. L4-5: Normal endplates. Normal disc height and morphology. Normal bilateral facet joints. Normal central canal and bilateral lateral recesses. Normal bilateral intervertebral neural foramina. L5-S1: Normal endplates. Normal disc height and morphology. Normal bilateral facet joints. Normal central canal and bilateral lateral recesses. Normal bilateral intervertebral neural foramina. Normal visualized paraspinous soft tissue structures. CT/Spine Lumbar without Contrast IMPRESSION: Normal unenhanced CT examination of the lumbar spine. Electronically Signed: Tobi Clemens DO at 12:20 EDT Tel [phone], Service support ,
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
[2019-01-17 13:20] VITALS: BP 109/67; PULSE 80; RESP 17; O2SAT 98
== END 2019-01-17 13:22 | disposition home or self-care (01) ==
PROVIDERS: Emergency Provider Emergency Medicine; Family Provider Internal Medicine; PCP Internal Medicine
DX: M54.42 Lumbago with sciatica, left side (principal); G89.29 Other chronic pain; Z85.71 Personal history of Hodgkin lymphoma
CPT/HCPCS: 72131; 72132; 80048; 85025; 96374; 99284; A4216

== ENCOUNTER 2019-10-15 18:06 | Emergency (ER) | payer MEDICAID, SELFPAY ==
[2019-10-15 18:09] VITALS: BP 143/81; PULSE 84; RESP 18; TEMP 36.9; O2SAT 100; BMI 24.0
[2019-10-15 18:13] VITALS: BP 143/75; PULSE 91; RESP 16; O2SAT 100
--- NOTE | 2019-10-15 18:23 | EKG12_ITS ---
Test Reason : CP Blood Pressure : / mmHG Vent. Rate : 084 BPM Atrial Rate : 084 BPM P-R Int : 160 ms QRS Dur : 116 ms QT Int : 366 ms P-R-T Axes : 067 034 061 degrees QTc Int : 432 ms Normal sinus rhythm with sinus arrhythmia Incomplete right bundle branch block Borderline ECG Confirmed by RODRIGO LOMELI, ALBINO ([id number]), supervising editor news reel [email or web address] ([id number]) on 10/18/2019 3:30:50 PM Referred By: DENNIS Confirmed By:ALBINO WALLACE MD
--- NOTE | 2019-10-15 18:23 | CT_ITS ---
HISTORY: Chest tightness and upper abd pain. Hx of lymphoma. Prior cholecystectomy. TECHNIQUE: Helically acquired images were obtained of the chest and abdomen. A radiation dose optimization technique was used for this scan. Curved linear reformats was performed on the acquisition scanner and additional 2 sagittal and coronal 2-D reformats. IV Contrast dosage and agent: Isovue 370 100ml Oral contrast: None. 823 images for the chest and abdomen: COMPARISON: MRI of the abdomen from January 05, 2018. CT scan of the abdomen and pelvis from January 05, 2018. FINDINGS: ----Chest: LUNGS, PLEURA AND LARGE AIRWAYS: No masses, consolidation, or edema. No pleural effusion or thickening. No pneumothorax. THYROID: No thyroid lesions. HEART AND PERICARDIUM: Heart size is normal. No pericardial effusion. VESSELS: Thoracic aorta is not dilated. There is no aneurysm, dissection, atherosclerotic plaque, or stenosis. No pulmonary emboli are present. Origins of the great vessels are widely patent and normal MEDIASTINUM AND ROWDY: No mediastinal or hilar adenopathy. Esophagus is unremarkable. No hiatal hernia. BONES: There is a hyperostotic communication between the right posterior first and second ribs. Small cervical ribs are also present. Bony alignment is normal. Vertebral body height is normal. Many Schmorl's node invaginations are present. Facets are adequately aligned. No acute rib fractures are perceived. ----Abdomen (without Pelvis): LIVER: Homogeneous. No focal mass. GALLBLADDER AND BILIARY TREE: The gallbladder is not identified, and I believe may have been resected. The common bile duct within the pancreatic head is normal. There may be a tiny amount of intrahepatic biliary ductal dilatation. PANCREAS: No focal cystic or solid mass. SPLEEN: Normal size without focal cystic or solid mass. ADRENAL GLANDS: No nodules. KIDNEYS AND URETERS: Normal renal size and position. No hydronephrosis. PERITONEUM: No ascites or free air. No other fluid collection. BOWEL: No stomach or bowel distension. No focal inflammatory change. LYMPH NODES: No enlarged mesenteric or retroperitoneal lymph nodes. VESSELS: The abdominal aorta is normal. There is no aneurysm, stenosis, occlusion, dissection, or atherosclerotic plaque. Flow is normal into the celiac trunk, SMA, solitary bilateral renal arteries, the NORA, and external iliac arteries. Flow from both external iliac arteries continued into the visualized portions of both external and internal iliac arteries. ABDOMINAL WALL: No discrete abdominal wall hernia. BONES: Metal and hyperostotic healing response is present about the right iliac wing and right SI joint likely from previous disarticulation and the fixation. The synovial portion of the left SI joint is fused with some additional enthesophytes about the sacroiliac joint. Within the lumbar spine bony alignment is normal. Vertebral body height is normal. Spinous and transverse processes are normal. CT/CTA Chest W/WO Contrast IMPRESSION: Negative CTA of the chest and abdomen.. Individualized dose optimization techniques were used for this CT. at 2028 Reported and signed by: René Lara MD Electronically Signed: René Lara MD at 20:27 EST Tel , Service support ,
--- NOTE | 2019-10-15 18:24 | CT_ITS ---
HISTORY: Chest tightness and upper abdominal pain. History of lymphoma. Cholecystectomy. Technique: Following the uneventful demonstration of 100 ML of Isovue-370 contiguous helical images were obtained through the abdomen. The 3-D images provided. Curvilinear reformats on the acquisition scanner was performed. ----Abdomen (without Pelvis): LIVER: Homogeneous. No focal mass. GALLBLADDER AND BILIARY TREE: The gallbladder is not identified, and I believe may have been resected. The common bile duct within the pancreatic head is normal. There may be a tiny amount of intrahepatic biliary ductal dilatation. PANCREAS: No focal cystic or solid mass. SPLEEN: Normal size without focal cystic or solid mass. ADRENAL GLANDS: No nodules. KIDNEYS AND URETERS: Normal renal size and position. No hydronephrosis. PERITONEUM: No ascites or free air. No other fluid collection. BOWEL: No stomach or bowel distension. No focal inflammatory change. LYMPH NODES: No enlarged mesenteric or retroperitoneal lymph nodes. VESSELS: The abdominal aorta is normal. There is no aneurysm, stenosis, occlusion, dissection, or atherosclerotic plaque. Flow is normal into the celiac trunk, SMA, solitary bilateral renal arteries, the NORA, and external iliac arteries. Flow from both external iliac arteries continued into the visualized portions of both external and internal iliac arteries. ABDOMINAL WALL: No discrete abdominal wall hernia. BONES: Metal and hyperostotic healing response is present about the right iliac wing and right SI joint likely from previous disarticulation and the fixation. The synovial portion of the left SI joint is fused with some additional enthesophytes about the sacroiliac joint. Within the lumbar spine bony alignment is normal. Vertebral body height is normal. Spinous and transverse processes are normal. CT/CTA Abdomen W/WO Contrast IMPRESSION: Negative CTA of the abdomen.. Individualized dose optimization techniques were used for this CT. at 2029 Reported and signed by: René Lara MD Electronically Signed: René Lara MD at 20:28 EST Tel , Service support ,
[2019-10-15 18:31] LABS: Absolute Lymphocyte Count 1.72 X10^3/uL (0.83-4.51); Absolute Neutrophil Count 8.1 X10^3/uL (2.0-7.7); Basophil# 0.05 X10^3/uL; Basophil% 0.5 % (0-1); Eosinophil# 0.08 X10^3/uL; Eosinophils% 0.8 % (0-5); Hematocrit 45.4 % (40-54); Hemoglobin 14.9 g/dL (13.0-16.5); Lymphocyte # 1.72 X10^3/ul (4.0); Lymphocyte % 16.2 % (19-41); Mean Corp Hgb Conc 32.8 g/dL (32-36); Mean Corpuscular Hgb 28.8 pg (27.0-32.0); Mean Corpuscular Volume 87.6 fL (80-94); Mean Platelet Vol. 11.1 fl (6.2-12.0); Monocyte# 0.62 X10^3/uL; Monocyte% 5.8 % (0-10); NRBC Flagged by Analyzer 0 % (0-5); Neutrophil # 8.12 X10^3/uL (2.7-7.7); Neutrophil % 76.1 % (47-70); Platelet Count 259 K/mm3 (150-450); RBC Distribution Width CV 12.6 % (11.6-14.6); RBC Distribution Width SD 40.4 fl (35.1-43.9); Red Blood Count 5.18 M/mm3 (4.6-6.2); White Blood Count 10.7 K/mm3 (4.4-11.0)
[2019-10-15 18:32] VITALS: O2SAT 100
[2019-10-15 18:52] LABS: ALB/GLOB Ratio 1.2 RATIO (0.9-2.4); AST(SGOT) 134 U/L (15-37); Alanine Aminotransfer ALT/SGPT 107 U/L (16-61); Alkaline Phosphatase 74 U/L (45-117); Anion Gap 5 (5-15); BUN 8 mg/dL (7-18); BUN/Creat Ratio 8.4 RATIO (10-20); Chloride 108 mmol/L (98-107); Creatinine, Serum 0.95 mg/dL (0.70-1.30); EST Glomerular Filtration Rate 98 mL/min (>60); Est Glom Filt Rate - Afr Amer 119 mL/min (>60); Estimated Creatinine Clearance 122.53 ml/min; Globulin 3.2 g/dL (2.2-4.2); Glucose 92 mg/dL (74-106); Lipase 114 U/L (73-393); Potassium 3.4 mmol/L (3.5-5.1); Protein, Total 7.2 g/dL (6.4-8.2); Sodium Level 142 mmol/L (136-145)
[2019-10-15] MEDS: 0.9% Normal Saline 1,000 ML 150 ML IV (19:24)
[2019-10-15 19:45] VITALS: PULSE 84; RESP 16; O2SAT 98
[2019-10-15 20:05] VITALS: BP 143/73; PULSE 81; RESP 14; O2SAT 100
--- NOTE | 2019-10-15 21:04 | ED.VISSUMM ---
- ER Visit Summary Date of Service: 10/15/19 Chief Complaint: [Abdomen/chest pain] History of Present Illness: The patient is a 34 M [presents to the emergency department complaint of sudden onset of severe excruciating pain in the epigastric region that radiated into his back and chest. Patient was at work when this happened. Patient felt like he could not breathe and started shaking. His states that he can turn purple. Patient complains of numbness in his arms. On arrival his pain is mild now and only rates it about a 3 out of 10. Patient has not had pain quite like this before. He has no medical history. No history of Marfan's. No cardiac history and no family history of cardiac disease. He is not had any recent travel or surgery.] Physical Examination: [HEENT-PERRLA, EOMI. Cranial nerves II through XII grossly intact. TMs clear. Mucous membranes moist. No adenopathy. Cardiovascular-regular rate and rhythm without murmur or ectopy Lungs-clear to auscultation, chest wall stable without crepitus or subcu emphysema Abdomen-normoactive bowel sounds, soft. Patient has tenderness in the epigastric region with some guarding. There is no rebound, rigidity, or peritoneal signs. Extremities-intact ?4, normal range of motion, normal pulses, atraumatic] Test Results: [EKG obtained arrival shows sinus rhythm with a ventricular rate of 84 bpm with an incomplete right bundle branch block. CBC with differential is normal. Chemistries unremarkable. LFTs showed a slight elevated ALT of 107 and an AST of 134 which are chronically elevated for the patient. His total bilirubin was 2.1. Lipase was 114. Troponin is less than 0.015. CTA of the chest and abdomen obtained were unremarkable.] Emergency Department Course and Treatment: [] Treatment Plan: [To follow-up with primary care physician in 3 to 5 days. Patient advised to return if worsening pain, increasing shortness of breath, or condition should worsen anyway.] Disposition: [Discharged home in stable condition] Impression: Abdominal pain-etiology uncertain Chest pain-etiology uncertain] This note was generated with [employer] software. It may contain incorrect words, spelling, and punctuation that were not noted in review of the chart prior to signing ED Disposition - Plan for ED Patient: Referrals: Anu José MD [Primary Care Provider] -
--- NOTE | 2019-10-15 21:07 | ED.DEP ---
ED Disposition - Plan for ED Patient: Instructions: CHEST PAIN, Uncertain Cause, ABDOMINAL PAIN, Unkown Cause, (Male) Referrals: Anu José MD [Primary Care Provider] - 3-5 Days
[2019-10-15 21:23] VITALS: BP 122/75; PULSE 87; RESP 16; O2SAT 96
== END 2019-10-15 21:29 | disposition home or self-care (01) ==
LOC: ED 18:53
PROVIDERS: Emergency Provider Emergency Medicine; PCP Internal Medicine
DX: R10.13 Epigastric pain (principal); R07.89 Other chest pain
CPT/HCPCS: 71275; 74175; 80053; 83690; 84484; 85025; 93005; 96360; 96361; 99285; J7030; Q9967; A4216